=== PATIENT | female | born 1955 | race Caucasian/White ===

== ENCOUNTER → 2016-07-01 | Outpatient (CLI) | payer OTHER ==
[~2016-07-01] MED LIST: ATEN-173 PO; CYAN3INJ INJ; ERGO1CAP35 PO; SYN75 PO
--- NOTE | 2016-07-01 14:06 | DIAGNOSTIC IMAGING REPORT ---
CHEST 2 VIEWS ROUTINE CLINICAL HISTORY: R05 Cough COMPARISON STUDY: 06/29/2014 FINDINGS: The cardiac and mediastinal contours are normal. There is no evidence of focal pulmonary consolidation. There is no evidence of failure. No pleural effusions are visualized.[ There is a right-sided A-Port catheter present. Postsurgical changes are present within the upper abdomen and left shoulder. IMPRESSION: No active disease in the chest. Electronically signed by: Orestes Pisano M.D. 07/01/2016 2:04 PM Dictated Date/Time: 07/01/2016 2:03 PM
== END | disposition home or self-care (01) ==
LOC: C.RAD1850 13:53
PROVIDERS: ATTEND Physician Assistant Medical
DX: R05 Cough (principal)

== ENCOUNTER 2017-02-17 20:40 | Emergency (ER) | payer OTHER ==
[~2017-02-17] VITALS: Ht 167.6 cm; Wt 101.5 kg
[2017-02-17 20:46] VITALS: TEMP 36.8; Ht 167.6 cm; Wt 101.5 kg
[2017-02-17] MEDS ORDERED: LIDOCAINE/EPINEPH/TETRACAINE 1 EA SYR EXT STA (21:02)
[2017-02-17] MEDS ORDERED: ACETAMINOPHEN 500 MG TAB PO STA (21:08)
--- NOTE | 2017-02-17 21:10 | EMERGENCY ROOM VISIT NOTE ---
History Report prepared by Tamara: Lia Kerr Under the Supervision of: Dr. Tavon Lane M.D. 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 The patient tripped on her pants and fell. She hit her head on the edge of a door. She reports having a lot of bleeding from a cut on her head. She denies any LOC. She is having some head pain. She denies any neck pain, chest pain, abdominal pain, hip pain, leg pain, change in bowel movements, change in vision, or change in hearing. She denies any other injuries. She has been eating well. She is not on any blood thinners. She has a history of irregular heartbeat and hypothyroidism. Patient is up to date on her tetanus. 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 Pt denies hip pain, leg pain, change in bowel movement, change in vision or hearing. Review of Systems See HPI for pertinent positives & negatives. A total of 10 systems reviewed and were otherwise negative. Past Medical & Surgical Medical Problems: (1) Bowel perforation (2) History of irregular heartbeat (3) History of partial bowel obstruction (4) History of partial bowel resection (5) Hypothyroidism Family History Cancer Diabetes mellitus Hypertension Social History Smoking Status: Never Smoker Drug Use: none Marital Status: Housing Status: lives with family Current/Historical Medications Scheduled Atenolol (Atenolol), 25 MG PO DAILY Cyanocobalamin (Cyanocobalamin), 1,000 MCG IM MONTHLY Ergocalciferol (Vitamin D 19201 Unit), 50,000 INTER.UNIT PO 2XWK Levothyroxine Sodium (Levothyroxine Sodium), 75 MCG PO DAILY Allergies Coded Allergies: Iodinated Diagnostic Agents (Verified Allergy, Mild, HIVES, 02/17/17) Oxycodone (Verified Allergy, Mild, hives, 02/17/17) Patient states that this is specific to "Endocet". Pt tolerates other forms of oxycodone. Physical Exam Vital Signs Date Time Temp Pulse Resp B/P (MAP) Pulse Ox O2 Delivery O2 Flow Rate FiO2 02/17/17 22:55 71 16 107/78 92 Room Air 02/17/17 20:46 36.8 80 16 108/74 94 Room Air Physical Exam GENERAL: Patient awake, alert, and appropriate. Patient appears to be in no distress. SKIN: No erythema, pallor, cyanosis or rash HEENT: 8 cm laceration extending from the right upper forehead back into the scalp which is about 1 cm deep, pupils equal, reactive to light and accommodation. No hemotympanum, Travis's sign, or raccoon's sign. Oral cavity and posterior pharynx appear normal. Neck: Supple, nontender without step off. CHEST: Nontender to palpation. ABDOMEN: Nontender to palpation. No masses, no rebound, no hepatomegaly or splenomegaly. EXTREMITIES: Slight tenderness to right wrist. Slight swelling. Patient is able to move the wrist and elbow without difficulty. No break in the skin. NEUROLOGIC: Cranial nerves II-XII within normal limits. No gross motor sensory function deficits. Medical Decision & Procedures ER Provider Diagnostic Interpretation: X ray results are stated below per my interpretation and the radiologist's interpretation. R WRIST MIN 3 VIEWS ROUTINE HISTORY: 61 years-old Female fall acute right wrist pain status post fall COMPARISON: None available TECHNIQUE: 3 views of the right wrist FINDINGS: Scapholunate interval measures in the upper limits of normal at 3 mm. Mild radiocarpal, triscaphe and first carpometacarpal osteoarthritis. 2 mm negative ulnar variance. No acute fracture or dislocation. Mild soft tissue swelling circumferentially about the wrist. No opaque foreign body. Bones appear mildly osteopenic. IMPRESSION: 1. Mild soft tissue swelling without fracture. 2. Mild degenerative changes as above. The above report was generated using voice recognition software. It may contain grammatical, syntax or spelling errors. Electronically signed by: Ronny Sprague M.D. 02/17/2017 9:53 PM Dictated Date/Time: 02/17/2017 9:51 PM Medications Administered Medications (Trade) Dose Ordered Sig/Terence Route Start Time Stop Time Status Last Admin Dose Admin Tetracaine/ Epinephrine/ Lidocaine (L.e.t. Gel 4%/ 1:100/0.5%) 1 ea NOW STAT EXT 02/17/17 21:02 12/8/17 21:04 DC 02/17/17 21:20 1 EA Oxycodone/ Acetaminophen (Percocet 5-325mg Tab) 1 tab ONE ONCE PO 02/17/17 21:30 02/17/17 21:32 DC 02/17/17 21:43 1 TAB Oxycodone HCl (Roxicodone Immediate Rel 5MG Home Pack) 1 homepack UD ONCE PO 02/17/17 23:00 02/17/17 23:01 DC 02/17/17 23:22 1 HOMEPACK ED Course 2047: Past medical records reviewed. The patient was evaluated in room A2. A complete history and physical examination was performed. 2126: I reevaluated the patient. She is having increased pain. She is now also complaining of right wrist pain. 2129: Oxycodone/Acetaminophen 1 tab PO. 2247: The laceration was repaired by Kingsley Raymond PA-C. 2299: Oxycodone HCl 1 homepack PO. 2306: Upon reevaluation, the patient was resting comfortably. I discussed today' s findings with her. She verbalized agreement of the treatment plan. She was discharged home. Medical Decision Nurses notes reviewed. Medical history sheet reviewed. Differential diagnosis includes but is not limited to: facial laceration, closed head injury, multiple trauma. The patient is here after a fall striking her head. The patient also has some pain in her right wrist. She denies loss of consciousness. She has no change in vision or hearing. She has no confusion. The patient denies chest abdominal or extremity pain other than the right wrist. The patient is an 8 cm laceration of her right for which extends into her scalp. She has normal neurologic exam. I do not believe she requires imaging studies of her head. An x-ray of her wrists reveals no fracture dislocation or subluxation. The laceration was repaired by Leobardo Raymond PA-C. Please see his note. A wrist lacer was placed on her right wrist. The patient was given pain medication and a home pack for tonight. The patient is to follow-up for suture removal in approximately 5-7 days. [place] Drug Monitoring Program Search Results: patient reviewed within database, no issues identified Head Trauma GCS Score: 15 Medication Reconcilliation Current Medication List: was personally reviewed by me Blood Pressure Screening Patient's blood pressure: Normal blood pressure Blood pressure disposition: Did not require urgent referral Impression Primary Impression: Facial laceration Additional Impression: Right wrist sprain Scribe Attestation The scribe's documentation has been prepared under my direction and personally reviewed by me in its entirety. I confirm that the note above accurately reflects all work, treatment, procedures, and medical decision making performed by me. Departure Information Dispostion Home / Self-Care Referrals Sharron Leung PA-C (PCP) Patient Instructions My [facility] Additional Instructions Return here for suture removal in approximate 5-7 days. Clean the wound gently with dilute peroxide once a day and cover with bacitracin ointment. Return here immediately if no signs of infection: Redness, swelling, pus. Wear the splint for the next 7-10 days. You may remove it for bathing or sleep. 1 oxycodone every 4 hours as needed for pain otherwise take 600 mg ibuprofen every 6 hours as needed for pain. Problem Qualifiers
[2017-02-17] MEDS ORDERED: ERGO500011 PO (21:13)
[2017-02-17] MEDS ORDERED: LEVO75TA5 PO (21:13)
[2017-02-17] MEDS ORDERED: CYNI1000 IM (21:13)
[2017-02-17] MEDS ORDERED: TNR25 PO (21:13)
[2017-02-17] MEDS ORDERED: XYLOCAINE 1%/SOD BICARB 20 ML VIAL INFIL ONE (21:15)
[2017-02-17] MEDS ORDERED: OXYCODONE/ACETAMINOPHEN 5-325 TAB PO ONE (21:30)
--- NOTE | 2017-02-17 21:54 | DIAGNOSTIC IMAGING REPORT ---
R WRIST MIN 3 VIEWS ROUTINE HISTORY: 61 years-old Female fall acute right wrist pain status post fall COMPARISON: None available TECHNIQUE: 3 views of the right wrist FINDINGS: Scapholunate interval measures in the upper limits of normal at 3 mm. Mild radiocarpal, triscaphe and first carpometacarpal osteoarthritis. 2 mm negative ulnar variance. No acute fracture or dislocation. Mild soft tissue swelling circumferentially about the wrist. No opaque foreign body. Bones appear mildly osteopenic. IMPRESSION: 1. Mild soft tissue swelling without fracture. 2. Mild degenerative changes as above. The above report was generated using voice recognition software. It may contain grammatical, syntax or spelling errors. Electronically signed by: Ronny Sprague M.D. 02/17/2017 9:53 PM Dictated Date/Time: 02/17/2017 9:51 PM
[2017-02-17 22:55] VITALS: BP 107/78; PULSE 71; O2SAT 92
[2017-02-17] MEDS ORDERED: OXYCODONE IR HOME PACK PO ONE (23:00)
--- NOTE | 2017-02-17 23:32 | EMERGENCY ROOM VISIT NOTE ---
ED Visit Note 61-year-old female who I was asked by Dr. Lane, ED attending physician, to perform a right forehead/frontal scalp laceration repair. Please see Dr. Lane' s dictation for further treatment and final disposition. PROCEDURE NOTE: Patient provided verbal consent for laceration repair under local anesthesia. Using buffered 1% lidocaine without epinephrine, good local anesthesia was administered. After allowing adequate time for anesthesia, the wound was then further prepped peripherally with iodine, then irrigated with normal saline. In sterile fashion, exploration of the wound did not show any foreign debris or active bleeding. The wound was approximated using a combination of 5-0 and 6-0 nylon simple interrupted sutures on the forehead, and charles on the scalp. Total laceration length of the forehead was 3.5 cm, and 4.5 cm on the scalp. The patient tolerated the procedure well. Additional verbal wound care instructions were provided to the patient. DIAGNOSIS: 1. Forehead laceration 2. Scalp laceration 3. Fall
== END 2017-02-17 23:23 | disposition home or self-care (01) ==
LOC: EDBD 20:40 → C.EDA 20:42
DX: S01.01XA Laceration without foreign body of scalp, initial encounter (principal); S01.81XA Laceration without foreign body of other part of head, initial encounter; S63.501A Unspecified sprain of right wrist, initial encounter; W01.118A Fall on same level from slipping, tripping and stumbling with subsequent striking against other sharp object, initial encounter; Y92.9 Unspecified place or not applicable; E03.9 Hypothyroidism, unspecified; I49.9 Cardiac arrhythmia, unspecified; Z80.9 Family history of malignant neoplasm, unspecified; Z83.3 Family history of diabetes mellitus; Z82.49 Family history of ischemic heart disease and other diseases of the circulatory system; Z79.899 Other long term (current) drug therapy

== ENCOUNTER → 2017-02-20 | Outpatient (CLI) | payer OTHER ==
[~2017-02-20] MED LIST changes: -ATEN-173 PO; -CYAN3INJ INJ; +CYNI1000 IM; -ERGO1CAP35 PO; +ERGO500011 PO; +LEVO75TA5 PO; -SYN75 PO; +TNR25 PO
--- NOTE | 2017-02-21 07:47 | MAMMOGRAPHY REPORT ---
BILATERAL DIGITAL SCREENING MAMMOGRAM TOMOSYNTHESIS WITH CAD: 02/20/2017 CLINICAL HISTORY: Routine screening. Patient has no complaints. TECHNIQUE: Breast tomosynthesis in addition to standard 2D mammography was performed. Current study was also evaluated with a Computer Aided Detection (CAD) system. COMPARISON: Comparison is made to exams dated: 06/11/2015 mammogram, 08/09/2012 ultrasound, 08/09/2012 mammogram, 01/25/2010 mammogram, 01/22/2009 mammogram - [facility], and 01/22/2008. BREAST COMPOSITION: There are scattered areas of fibroglandular density in both breasts. FINDINGS: The hub of the Port-A-Cath projects over the far superior right breast/axillary region on t he MLO view. There is a new small grouping of microcalcifications in the upper outer middle one third of the right breast, for which additional spot magnification views are recommended. There are grouped coarsening calcifications with associated nodular asymmetry in the 12:00 left breas t, most likely a degenerating fibroadenoma. No other suspicious mass, architectural distortion or clu ster of microcalcifications is seen. IMPRESSION: ACR BI-RADS CATEGORY 0: INCOMPLETE EVALUATION: NEED ADDITIONAL IMAGING EVALUATION The new small grouping of microcalcifications in the upper outer right breast need additional evaluat ion. The patient will be called to schedule an appointment. Approximately 10% of breast cancers are not detected with mammography. A negative mammographic report should not delay biopsy if a clinically suggestive mass is present. Jannie Bernal M.D. ay/:02/20/2017 21:23:53 Supervisor: Beverly MOYER(Madelyn)(M), [facility] letter sent: Addl Imaging 0 BI-RADS Code: ACR BI-RADS Category 0: Incomplete Evaluation: Need Additional Imaging Evaluation
== END | disposition home or self-care (01) ==
LOC: C.MAMM 14:28
PROVIDERS: ATTEND Obstetrics & Gynecology
DX: Z12.31 Encounter for screening mammogram for malignant neoplasm of breast (principal); R92.0 Mammographic microcalcification found on diagnostic imaging of breast

== ENCOUNTER 2017-02-22 13:33 | Emergency (ER) | payer OTHER ==
[~2017-02-22] VITALS: Ht 167.6 cm; Wt 98.2 kg
[2017-02-22 13:38] VITALS: TEMP 37; Ht 167.6 cm; Wt 98.2 kg
[2017-02-22] MEDS ORDERED: DIPHTHERIA/TETANUS/PERTUSSIS 0.5 ML SYR/VIAL IM. ONE (14:30)
--- NOTE | 2017-02-22 14:37 | DIAGNOSTIC IMAGING REPORT ---
CT SCAN OF THE BRAIN WITHOUT IV CONTRAST CLINICAL HISTORY: Fall several days ago. Headache. COMPARISON STUDY: No priors. TECHNIQUE: Unenhanced axial CT scan of the brain is performed from the vertex to the skull base. A dose lowering technique was utilized adhering to the principles of ALARA. CT DOSE: 638.56 mGycm FINDINGS: Brain parenchyma: The brain parenchyma is normal in appearance. There is no hemorrhage, mass effect, or evidence of acute territorial ischemia by CT criteria. Hill-white matter is preserved. No extra-axial fluid collection is seen. Ventricles, sulci, cisterns: Normal in configuration. Intracranial vasculature: The visualized intracranial vasculature at the skull base is normal in appearance. Calvarium: There is no depressed calvarial fracture. Soft tissues: There is a small right frontal scalp contusion/laceration. Sinuses and mastoids: There is trace mucosal thickening in the right maxillary antrum. The remaining visualized paranasal sinuses are clear. The mastoid air cells are well pneumatized. Orbits: The bony orbits are grossly intact. IMPRESSION: No acute intracranial abnormality. Electronically signed by: Diego Meyer M.D. 02/22/2017 2:36 PM Dictated Date/Time: 02/22/2017 2:33 PM
--- NOTE | 2017-02-22 15:34 | DIAGNOSTIC IMAGING REPORT ---
RIGHT WRIST 4 VIEWS HISTORY: fall, right wrist pain, prev xrays neg. Moderate swelling bruise COMPARISON: 02/17/2017. FINDINGS: There is no fracture or dislocation. Moderate soft tissue swelling which has progressed. No radiopaque foreign bodies. IMPRESSION: No fractures. Moderate soft tissue swelling. Electronically signed by: Mal Little M.D. 02/22/2017 3:33 PM Dictated Date/Time: 02/22/2017 3:30 PM
[2017-02-22 16:35] VITALS: BP 167/91; PULSE 63; O2SAT 94
--- NOTE | 2017-02-22 21:59 | EMERGENCY ROOM VISIT NOTE ---
History Report prepared by Tamara: Maria Chaves Under the Supervision of: Dr. Amador Pizarro M.D. First contact with patient: 13:42 Chief Complaint: HEAD PAIN Stated Complaint: PAIN IN HEAD/PREV HEAD INJURY History of Present Illness The patient is a 61 year old female who presents to the Emergency Room with complaints of a persistent headache that began 5 days ago. The patient rates her discomfort a 5 out of 10 in severity. She describes her headache as a stabbing pain. The patient came to the Emergency Department on Monday for a laceration on her head, secondary to falling. She notes that she tripped over her pants and hit her head on the door. The patient denies having a CT done during her visit, but she had an x-ray done for her hand and wrist. She notes that she has a sprained right wrist that has been hurting and bruising since the incident.The patient states that she has been having some soreness in her left arm, closer to her elbow. Pt denies LOC, fevers, chills, diaphoresis, visual changes, neck pain, chest pain, breathing difficulties, nausea, vomiting, abdominal pain, back pain, urinary symptoms, numbness, weakness, lymphadenopathy, rash, or other complaints. Source of History: patient Onset: Monday Position: head (headache) Symptom Intensity: 5/10 Quality: other (head pain) Timing: other (5 days ago) Note: Associated symptoms include: right wrist bruising and pain, left arm soreness Review of Systems See HPI for pertinent positives and negatives. A total of ten systems were reviewed and were otherwise negative. Past Medical & Surgical Medical Problems: (1) Bowel perforation (2) History of irregular heartbeat (3) History of partial bowel obstruction (4) History of partial bowel resection (5) Hypothyroidism Family History Cancer Diabetes mellitus Hypertension Social History Smoking Status: Never Smoker Drug Use: none Marital Status: Housing Status: lives with family Current/Historical Medications Scheduled Atenolol (Atenolol), 25 MG PO DAILY Levothyroxine Sodium (Levothyroxine Sodium), 75 MCG PO DAILY Allergies Coded Allergies: Iodinated Diagnostic Agents (Verified Allergy, Mild, HIVES, 02/22/17) Oxycodone (Verified Allergy, Mild, hives, 02/22/17) Patient states that this is specific to "Endocet". Pt tolerates other forms of oxycodone. Physical Exam Vital Signs Date Time Temp Pulse Resp B/P (MAP) Pulse Ox O2 Delivery O2 Flow Rate FiO2 02/22/17 16:35 63 18 167/91 94 02/22/17 15:45 62 18 125/80 97 Room Air 02/22/17 13:38 37.0 66 18 155/88 94 Room Air Physical Exam GENERAL: Awake, alert, uncomfortable-appearing, in no distress HEAD: Healed laceration to right scalp and forehead, no erythema or drainage. Residual bruising on right forehead and right cheek. HENT: Normocephalic, atraumatic. Oropharynx unremarkable. EYES: Normal conjunctiva. Sclera non-icteric. Residual bruising around right eye. Right pupil is about 1mm smaller than left. Reactive to light. No hyphema. Lids appear normal. NECK: Supple. No nuchal rigidity. FROM. No JVD. RESPIRATORY: Clear to auscultation. CARDIAC: Regular rate, normal rhythm. Extremities warm and well perfused. Pulses equal. ABDOMEN: Soft, non-distended. No tenderness to palpation. No rebound or guarding. No masses. RECTAL: Deferred. MUSCULOSKELETAL: Chest examination reveals no tenderness. The back is symmetrical on inspection without obvious abnormality. There is no CVA tenderness to palpation. No joint edema. UPPER EXTREMITIES: Bruising to right hand dorsal aspect. Bruising to the dorsal ulnar aspect of the right wrist. There is also bruising noted to the radial volar aspect of the right wrist. Mild snuffbox tenderness right wrist. Mild tenderness to right wrist. Left elbow normal, small bruise on left AC right elbow, rest of arm is normal. LOWER EXTREMITIES: Calves are equal size bilaterally and non-tender. No edema. No discoloration. Bruising of left solano and right knee. NEURO: Normal sensorium. No sensory or motor deficits noted. SKIN: No rash or jaundice noted. Medical Decision & Procedures ER Provider Diagnostic Interpretation: Radiology results as stated below per my review and radiologist interpretation: CT SCAN OF THE BRAIN WITHOUT IV CONTRAST CLINICAL HISTORY: Fall several days ago. Headache. COMPARISON STUDY: No priors. TECHNIQUE: Unenhanced axial CT scan of the brain is performed from the vertex to the skull base. A dose lowering technique was utilized adhering to the principles of ALARA. CT DOSE: 638.56 mGycm FINDINGS: Brain parenchyma: The brain parenchyma is normal in appearance. There is no hemorrhage, mass effect, or evidence of acute territorial ischemia by CT criteria. Hill-white matter is preserved. No extra-axial fluid collection is seen. Ventricles, sulci, cisterns: Normal in configuration. Intracranial vasculature: The visualized intracranial vasculature at the skull base is normal in appearance. Calvarium: There is no depressed calvarial fracture. Soft tissues: There is a small right frontal scalp contusion/laceration. Sinuses and mastoids: There is trace mucosal thickening in the right maxillary antrum. The remaining visualized paranasal sinuses are clear. The mastoid air cells are well pneumatized. Orbits: The bony orbits are grossly intact. IMPRESSION: No acute intracranial abnormality. Electronically signed by: Diego Meyer M.D. 02/22/2017 2:36 PM RIGHT WRIST 4 VIEWS HISTORY: fall, right wrist pain, prev xrays neg. Moderate swelling bruise COMPARISON: 02/17/2017. FINDINGS: There is no fracture or dislocation. Moderate soft tissue swelling which has progressed. No radiopaque foreign bodies. IMPRESSION: No fractures. Moderate soft tissue swelling. Electronically signed by: Mal Little M.D. 02/22/2017 3:33 PM Medications Administered Medications (Trade) Dose Ordered Sig/Terence Route Start Time Stop Time Status Last Admin Dose Admin Diphtheria/ Pertussis/Tetanus Vacc (Adacel Inj) 0.5 ml ONCE ONCE IM. 02/22/17 14:30 02/22/17 14:31 DC 02/22/17 15:47 0.5 ML Procedure Procedure: Suture and staple removal. The patient had her charles and sutures removed in the standard fashion without complication. Bacitracin and Steri- Strips applied. Patient tolerated well. No issues. ED Course 1349: The patient was evaluated in room C3. A complete history and physical exam was performed. The patient had her sutures and charles removed from her head. 1430: Ordered Adacel Inj 0.5 ml IM. 1529: I reevaluated the patient. Discussed results and discharge instructions: She verbalized understanding and agreement. The patient is ready for discharge. Medical Decision Triage Nursing notes reviewed. The patient's presentation and history were concerning for recent head injury, headache and wrist pain. Etiologies such as fracture, contusion, intracranial injury, concussion, as well as others were entertained. The patient was evaluated. Her wound was healing well. She desired to have her sutures and charles removed. This was done without any issues. The wound was healing well. No signs of infection. No dehiscence. The patient underwent CT imaging as she was having persistent symptoms. This was negative. I believe that she has a minor concussion and the symptoms would fit. The patient's wrist examinations as above. X-ray imaging did not reveal any evidence of fracture. Because she was still having symptoms she was placed back in her cock-up splint. She will follow-up with her primary next week regarding the concussion symptoms as well as the wrist. If she is having symptoms she will need to follow-up with orthopedics regarding the wrist. If she is having continued concussive like symptoms she may need to have referral to the concussion clinic. I gave my usual and customary discussion regarding this issue. By the evaluation outlined above other emergent etiologies such as those listed in the differential, as well as others, were deemed relatively unlikely. The patient was educated about the findings as listed above. All questions were answered and the patient was pleased with the treatment. Return instructions were outlined and the patient was discharged in stable condition. The patient was referred to her PCP for follow-up for a recheck of the current condition. Head Trauma GCS Score: 15 Medication Reconcilliation Current Medication List: was personally reviewed by me Blood Pressure Screening Patient's blood pressure: Elevated blood pressure Blood pressure disposition: Referred to PCP Impression Primary Impression: Closed head injury Additional Impressions: Visit for suture removal Wrist contusion Scribe Attestation The scribe's documentation has been prepared under my direction and personally reviewed by me in its entirety. I confirm that the note above accurately reflects all work, treatment, procedures, and medical decision making performed by me. Departure Information Dispostion Home / Self-Care Referrals Lamont Choudhary M.D. (PCP) Forms HOME CARE DOCUMENTATION FORM, IMPORTANT VISIT INFORMATION, WORK / SCHOOL INSTRUCTIONS Patient Instructions My [facility] Additional Instructions WOUND CARE INSTRUCTIONS: Tylenol as needed for pain. Apply direct pressure for any bleeding. Continue to use the wrist brace until symptoms resolve. If you are still having wrist pain or limited range of motion next week follow-up with your orthopedist. No lifting with the right arm. Return to the ER immediately for severe headache, vomiting, spreading redness, fevers, pus-like drainage, severe pain, or as needed. Follow-up with your primary physician next week for recheck regarding the concussion symptoms. Problem Qualifiers
== END 2017-02-22 16:36 | disposition home or self-care (01) ==
LOC: C.EDB 13:35 → C.EDC 16:36
DX: S01.91XD Laceration without foreign body of unspecified part of head, subsequent encounter (principal); S60.211D Contusion of right wrist, subsequent encounter; S63.501D Unspecified sprain of right wrist, subsequent encounter; S05.11XD Contusion of eyeball and orbital tissues, right eye, subsequent encounter; S60.221D Contusion of right hand, subsequent encounter; S50.01XD Contusion of right elbow, subsequent encounter; W01.198D Fall on same level from slipping, tripping and stumbling with subsequent striking against other object, subsequent encounter; Z48.02 Encounter for removal of sutures; R40.2412 Glasgow coma scale score 13-15, at arrival to emergency department; R03.0 Elevated blood-pressure reading, without diagnosis of hypertension; E03.9 Hypothyroidism, unspecified; Z83.3 Family history of diabetes mellitus; Z82.49 Family history of ischemic heart disease and other diseases of the circulatory system

== ENCOUNTER → 2017-02-28 | Outpatient (CLI) | payer OTHER ==
[~2017-02-28] MED LIST changes: -CYNI1000 IM; -ERGO500011 PO
--- NOTE | 2017-03-01 14:12 | MAMMOGRAPHY REPORT ---
UNILATERAL RIGHT DIGITAL DIAGNOSTIC MAMMOGRAM: 02/28/2017 CLINICAL HISTORY: 61-year-old woman called back from screening mammography for a possible new cluster of microcalcifications in the right upper outer quadrant. No known family history of breast cancer. TECHNIQUE: COMPARISON: Comparison is made to exams dated: 02/20/2017 mammogram, 06/11/2015 mammogram, 08/09/2012 ultrasound, 08/09/2012 mammogram, 01/25/2010 mammogram, and 01/22/2009 mammogram - [facility]. BREAST COMPOSITION: There are scattered areas of fibroglandular density in the right breast. FINDINGS: There is a new 1.8 mm grouping of punctate microcalcifications in the upper outer middle o ne third of the right breast. These microcalcifications may be starting to form a rim based on the M LO appearance, or could represent a degenerating fibroadenoma, as is likely present in the left breas t. There is no associated mass, asymmetry or architectural distortion. Given the interval developmen t they are indeterminate and definitive characterization with stereotactic guided biopsy is recommend ed. IMPRESSION: ACR BI-RADS CATEGORY 4: SUSPICIOUS Right breast stereotactic guided biopsy is recommended for a new 1.8 mm cluster of punctate microcalc ifications in the upper outer quadrant. These results and recommendations were discussed with the patient at the time of the exam. She tenta tively scheduled the right breast biopsy prior to leaving our department. Approximately 10% of breast cancers are not detected with mammography. A negative mammographic report should not delay biopsy if a clinically suggestive mass is present. Jannie Bernal M.D. ay/:02/28/2017 14:11:18 Neck Fitter: Florence MOYER(R)(M), [facility] letter sent: Abnormal 4/5 BI-RADS Code: ACR BI-RADS Category 4: Suspicious
== END | disposition home or self-care (01) ==
LOC: C.MAMM 13:32
PROVIDERS: ATTEND Obstetrics & Gynecology
DX: R92.0 Mammographic microcalcification found on diagnostic imaging of breast (principal)

== ENCOUNTER → 2017-03-17 | Outpatient (CLI) | payer OTHER ==
--- NOTE | 2017-03-17 13:10 | Discharge Instructions ---
Discharge Instructions Procedure Procedure Date: Mar 17, 2017. Reason for visit: Right Calcifications. Discharge Discharge Date: Mar 17, 2017. Discharge Diagnosis: status post breast biopsy Instructions Activity Recommendations: Additional Limitations (see below) Return to School/Work: no limitations Recommended Home Diet: No Limitations Provider Instructions: ACTIVITY RECOMMENDATIONS: * No lifting, pushing, pulling or exercising the affected side for three days. RETURN TO SCHOOL/WORK: * You may return to work/school after the procedure, but do not perform any strenuous activities for 24 to 48 hours. MEDICATIONS: * Tylenol (two 325 mg) every four to six hours if needed for mild pain (if not allergic to Tylenol). DIET: * Resume previous diet. SPECIAL CARE INSTRUCTIONS: * Keep biopsy site dry for 24 hours. May shower after 24 hours, but do not soak (bathe) incision. * May remove Tegaderm (plastic patch) tomorrow AFTER showering. * Leave the steri-strips on for one week. Allow the steri-strips to fall off by themselves. If not off after one week, you may remove them. You may place a Bandaid crosswise over the strips, if desired. * Apply ice 10 minutes on and 10 minutes off as needed. * Wear a bra at bedtime to sleep more comfortably for 2-3 days. * Your referring physician should have the results after approximately 5 to 7 business days. * Call for unusual bleeding, fever, drainage, etc or if you have any questions call during normal business hours or after hours call Dr Mcnamara, . FOLLOW UP VISIT: Follow-up with Referring Physician as scheduled. Allergies Coded Allergies: Iodinated Diagnostic Agents (Verified Allergy, Mild, HIVES, 02/22/17) Oxycodone (Verified Allergy, Mild, hives, 02/22/17) Patient states that this is specific to "Endocet". Pt tolerates other forms of oxycodone. Bob Darden Recommendations: Call your doctor if: * Temperature above 101 degrees * Pain not relieved by pain medicine ordered * There is increased drainage or redness from any incision * You have any unanswered questions or concerns. Your Doctors Instructions noted above were prepared by provider Ariadna Mcnamara. Patient Signature Section: Patient Instructions Signature Page Lona Ardon Patient (or Guardian) Signature/Date: I have read and understand the instructions given to me by my caregivers. Caregiver/RN/Doctor Signature/Date: The above-named patient and/or guardian has received patient instructions on this date. + Original Patient Signature Page (only) stays with chart. Please make copy for patient.
--- NOTE | 2017-03-17 14:35 | MAMMOGRAPHY REPORT ---
STEREOTACTIC GUIDED BIOPSY RIGHT BREAST: 03/17/2017 CLINICAL HISTORY: Indeterminate calcifications in the right upper outer quadrant. PATIENT CONSENT: The procedure, risks, benefits, and alternatives of stereotactic biopsy with clip pl acement were discussed with the patient, and verbal and written consent was obtained. A timeout was performed immediately prior to the procedure. PROCEDURE DESCRIPTION: With stereotactic guidance, aseptic technique, and lidocaine as a local anesth etic (1% lidocaine to anesthetize the skin and 1% lidocaine with epinephrine to anesthetize the deepe r tissues), the calcifications of concern in the right upper outer quadrant were sampled multiple meena es with a 9-gauge vacuum-assisted biopsy needle ([employer]). The path of approach was lateral. Th e specimen radiograph demonstrates calcifications to be present in the samples. A metallic marker cl ip was placed at the biopsy site. This was confirmed on postprocedure mammograms. Direct pressure w as applied at the biopsy site and hemostasis was readily achieved. The patient tolerated the procedu re without complication. She was given wound care instructions. COMPARISON: Comparison is made to exams dated: 02/28/2017 mammogram, 02/20/2017 mammogram, 06/11/2015 mammogram, 08/09/2012 mammogram, 01/25/2010 mammogram, and 01/22/2009 mammogram - [facility]. IMPRESSION: STEREOTACTIC GUIDED BIOPSY Stereotactic biopsy of indeterminate calcifications in the right upper outer quadrant, with clip plac ement. The patient will receive pathology results from her referring provider. If pathology results are benign, the patient can return to routine annual mammography. Ariadna Mcnamara M.D. /:03/17/2017 13:17:03 Director Of Security: Gwen Arroyo, [facility]
--- NOTE | 2017-03-17 14:38 | MAMMOGRAPHY REPORT ---
UNILATERAL RIGHT DIGITAL DIAGNOSTIC MAMMOGRAM: 03/17/2017 CLINICAL HISTORY: Status post right breast stereotactic biopsy. TECHNIQUE: Postprocedural right CC and ML views were obtained. COMPARISON: Comparison is made to exams dated: 02/28/2017 mammogram, 02/20/2017 mammogram, 06/11/2015 mammogram, 08/09/2012 mammogram, and 08/09/2012 ultrasound - [facility]. BREAST COMPOSITION: There are scattered areas of fibroglandular density in the right breast. FINDINGS: A new biopsy marker clip is seen at the site of the biopsied calcifications in the right u pper outer quadrant. No significant postbiopsy hematoma is seen. IMPRESSION: POST PROCEDURE IMAGING FOR MARKER PLACEMENT New biopsy marker clip status post right breast stereotactic biopsy. Pathology results are pending. Approximately 10% of breast cancers are not detected with mammography. A negative mammographic report should not delay biopsy if a clinically suggestive mass is present. Ariadna Mcnamara M.D. ah/:03/17/2017 13:22:08 Radio Survey Worker: Gwen Arroyo, [facility] BI-RADS Code: Post Procedure Imaging For Marker Placement
== END | disposition home or self-care (01) ==
LOC: C.MAMM 12:29
PROVIDERS: ATTEND Obstetrics & Gynecology
DX: R92.0 Mammographic microcalcification found on diagnostic imaging of breast (principal)